=== PATIENT | female | born 1950 | race Caucasian/White ===

== ENCOUNTER 2020-07-22 15:59 | Emergency (ER) | payer OTHER ==
[~2020-07-22] VITALS: Ht 157 cm; Wt 74.8 kg
[~2020-07-22 15:59] MED LIST: HYDROCODONE; MELO-195; PRIMATINE MIST; PROP1TAB77
[2020-07-22] MEDS ORDERED: LIDOCAINE 1% INJ 20 ML 20 ML VIAL INJ ONE (16:30)
[2020-07-22] MEDS ORDERED: BUPIVACAINE 0.5% 30 ML (SENSORCAINE) VIAL INJ ONE (16:45)
--- NOTE | 2020-07-22 18:13 | ED Lower Extremity ---
General Chief Complaint: Lower Extremity Stated Complaint: PAIN IN LEFT KNEE Nursing Triage Note: PT PRESENTS TO ED FOR LT KNEE SWELLING AND PAIN. PT DENIES KNOWN INJURY. PT STATES THIS HAPPENED ABOUT TWO MONTHS AGO AND FLUID WAS DRAINED BY DR. ABDI. PT AMB. TO [facility]. Nursing Sepsis Screen: No Definite Risk Source: patient Exam Limitations: no limitations History of Present Illness Date Seen by Provider: Jul 22, 2020 Time Seen by Provider: 16:20 Initial Comments This 70-year-old woman presents to the emergency room with progressive left knee effusion and pain. She has history of this problem in the past and had aspiration and injection performed at [facility] last year. This treatment was helpful. She has an appointment pending with Dr. Abdi later this week but states she cannot wait until then because her pain is too severe. I did contact [facility] for review of prior records. Aspirate was sent for andi hickeyation at that time and grew no bacteria. There were crystals. Therapy at that time included aspiration of fluid and injection of dexamethasone, Marcaine, and lidocaine. Patient would like to repeat this therapy today. Allergies and Home Medications Allergies Coded Allergies: Heparin Agents (Verified Allergy, Unknown, HEMATOMAS , 10/14/08) Ibuprofen (Verified Allergy, Unknown, 08/25/05) Patient Home Medication List Home Medication List Reviewed: Yes Review of Systems Constitutional: no symptoms reported EENTM: no symptoms reported Respiratory: no symptoms reported Cardiovascular: no symptoms reported Gastrointestinal: no symptoms reported Genitourinary: no symptoms reported : No Musculoskeletal: see HPI Skin: no symptoms reported Psychiatric/Neurological: No Symptoms Reported Past Xlrqnhl-Zxegvb-Oaetgz Hx Past Med/Social Hx: Reviewed Nursing Past Med/Soc Hx Patient Social History Alcohol Use: Denies Use Smoking Status: Current Everyday Smoker Recent Infectious Disease Expo: No Recent Hopitalizations: Yes (back surgery, gi bleed from heparin infusing, bronchitis) Past Medical History Surgeries: Yes Gallbladder, Orthopedic Respiratory: Yes Asthma, Pneumonia, Chronic Bronchitis Cardiac: No Neurological: No : No Reproductive Disorders: No Sexually Transmitted Disease: No Gastrointestinal: Yes Gastrointestinal Bleed Musculoskeletal: Yes Arthritis Endocrine: No Psychosocial: No Blood Disorders: No Physical Exam Vital Signs Vital Signs - First Documented 07/22/20 16:15 Temp 35.5 Pulse 107 Resp 19 B/P (MAP) 156/88 (110) Pulse Ox 100 O2 Delivery Room Air Capillary Refill : Less Than 3 Seconds Height, Weight, BMI Height: '" Weight: lbs. oz. kg; 30.00 BMI Method:Stated General Appearance: WD/WN, no apparent distress HEENT: normal ENT inspection Respiratory: no respiratory distress Knees: bilateral knee joint effusion, bilateral knee other (Left knee has significant tight effusion with no erythema, heat, or inflammatory changes. There is tenderness to palpation.) Neurologic/Psychiatric: no motor/sensory deficits, alert, normal mood/affect, oriented x 3 Skin: normal color, warm/dry Procedures/Interventions After informed consent aspiration and injection of the left knee was performed. A superior lateral approach was used. Skin was anesthetized with superficial injection of lidocaine. Skin was then prepped with Betadine and an 18-gauge needle was inserted into the joint space. Approximately 60 mL of yellow synovial fluid was aspirated with scant amount of blood. A mixture of 0.5% Marcaine (2 mL), 1% lidocaine (2 mL), and dexamethasone 4 mg was injected via the same needle. Patient tolerated the procedure well and had immediate improvement in symptoms. Progress/Results/Core Measures Results/Orders My Orders Orders - RONAK RODRIGUEZ MD Lidocaine 1% Inj 20 Ml (Xylocaine 1% Inj (07/22/20 16:30) Bupivacaine 0.5% Injection (Sensorcaine (07/22/20 16:45) Dexamethasone Injection (Decadron Inje (07/22/20 16:45) Medications Given in ED Current Medications Medications Dose Ordered Sig/Julissa Route Start Time Stop Time Status Last Admin Dose Admin Bupivacaine HCl 30 ml ONCE ONCE INJ 07/22/20 16:45 07/22/20 16:46 DC 07/22/20 18:33 2 ML Dexamethasone Sodium Phosphate 4 mg ONCE ONCE INJ 07/22/20 16:45 07/22/20 16:46 DC 07/22/20 18:33 4 MG Lidocaine HCl 20 ml ONCE ONCE INJ 07/22/20 16:30 07/22/20 16:31 DC 07/22/20 18:31 3 ML Vital Signs/I&O 07/22/20 07/22/20 16:15 18:32 Temp 35.5 35.5 Pulse 107 90 Resp 19 18 B/P (MAP) 156/88 (110) 137/82 Pulse Ox 100 100 O2 Delivery Room Air Room Air Blood Pressure Mean: 110 Departure Impression Primary Impression: Effusion, left knee Additional Impression: Left knee pain Qualified Codes: M25.562 - Pain in left knee; G89.29 - Other chronic pain Disposition: 01 HOME, SELF-CARE Condition: Improved Departure-Patient Inst. Decision time for Depature: 18:10 Referrals: [facility] (PCP/Family) Primary Care Physician Patient Instructions: Osteoarthritis Add. Discharge Instructions: Keep your appointment with Dr. Abdi. Please notify his office that the aspiration and injection have already been performed prior to your appointment. Gradually increase level of activity as pain allows. You may have some rebound of pain after the anesthetic medication wears off. Return to care promptly if you have worsening of symptoms, especially if you develop heat, redness, or escalating pain around the knee and injection site or if you develop fever. Call with questions or concerns. All discharge instructions reviewed with patient and/or family. Voiced mitch martinez. Copy Copies To 1: MOJGAN CRUZ JOSHUA T MD Jul 22, 2020 18:13
[2020-07-22 18:32] VITALS: BP 137/82
== END 2020-07-22 18:32 | disposition home or self-care (01) ==
LOC: EDUNIT# 15:59 → ER 16:04
DX: M25.462 Effusion, left knee (principal); J45.909 Unspecified asthma, uncomplicated; F17.200 Nicotine dependence, unspecified, uncomplicated; Z88.5 Allergy status to narcotic agent; Z88.8 Allergy status to other drugs, medicaments and biological substances
CPT/HCPCS: 99284

== ENCOUNTER 2020-08-09 09:36 | Emergency (ER) | payer OTHER ==
[~2020-08-09] VITALS: Ht 165 cm; Wt 74.0 kg
--- NOTE | 2020-08-09 12:12 | ED Lower Extremity ---
General Chief Complaint: Lower Extremity Stated Complaint: L KNEE PAIN Nursing Triage Note: PT CO OF L KNEE PAIN, RATES 9/10. STATES WAS HERE 2 WEEKS AGO AND HAD FLUID ON KNEE Nursing Sepsis Screen: No Definite Risk Source: patient Exam Limitations: no limitations History of Present Illness Date Seen by Provider: Aug 09, 2020 Time Seen by Provider: 12:07 Initial Comments To ER with left knee pain and swelling for a couple of weeks. She has had 2 arthrocentesis done each of which included an injection of dexamethasone into the joint. Most recently about 2 weeks ago. She is to see Dr. Abdi from orthopedics in [facility] but has not yet seen him. No systemic symptoms such as fevers or chills. Onset: just prior to arrival Severity: moderate Pain/Injury Location: left knee Method of Injury: unknown Modifying Factors: Worse With Movement Allergies and Home Medications Allergies Coded Allergies: Heparin Agents (Verified Allergy, Unknown, HEMATOMAS , 10/14/08) Ibuprofen (Verified Allergy, Unknown, 08/25/05) Patient Home Medication List Home Medication List Reviewed: Yes Review of Systems Constitutional: see HPI; No chills, No fever EENTM: see HPI Respiratory: no symptoms reported Cardiovascular: no symptoms reported Genitourinary: no symptoms reported Musculoskeletal: see HPI Skin: no symptoms reported Psychiatric/Neurological: No Symptoms Reported Past Rgcwntj-Gjkglw-Kjmclk Hx Patient Social History Alcohol Use: Denies Use Smoking Status: Current Everyday Smoker Type Used: Cigarettes Recent Infectious Disease Expo: No Recent Hopitalizations: Yes (back surgery, gi bleed from heparin infusing, bronchitis) Past Medical History Surgeries: Yes Gallbladder, Orthopedic Respiratory: Yes Asthma, Pneumonia, Chronic Bronchitis Cardiac: No Neurological: No Reproductive Disorders: No Sexually Transmitted Disease: No Gastrointestinal: Yes Gastrointestinal Bleed Musculoskeletal: Yes Arthritis Endocrine: No Psychosocial: No Blood Disorders: No Physical Exam Vital Signs Vital Signs - First Documented 08/09/20 11:55 Temp 36.1 Pulse 51 Resp 18 B/P (MAP) 132/50 (77) Pulse Ox 100 Capillary Refill : Less Than 3 Seconds Height, Weight, BMI Height: '" Weight: lbs. oz. kg; 27.00 BMI Method:Stated General Appearance: WD/WN, no apparent distress Respiratory: no respiratory distress, no accessory muscle use Hips: bilateral hip non-tender, bilateral hip normal inspection, bilateral hip normal range of motion Legs: bilateral leg non-tender, bilateral leg normal inspection, bilateral leg normal range of motion Knees: left knee soft tissue tenderness, left knee swelling (Left knee is tender to palpation with a palpable effusion. There is no erythema. ) Ankles: bilateral ankle non-tender, bilateral ankle normal inspection, bilateral ankle normal range of motion Feet: bilateral foot non-tender, bilateral foot normal inspection, bilateral foot normal range of motion Neurologic/Psychiatric: alert, normal mood/affect, oriented x 3 Skin: normal color, warm/dry Procedures/Interventions Additional Procedures: Arthrocentesis Aspirating Progress Using sterile technique an area that was 1 cm superior and 1 cm lateral to the superior and lateral border of the left patella was identified. This was cleansed with Betadine swabs which were allowed to dry. It was anesthetized with 1 mL of lidocaine without epinephrine using a 27-gauge needle. A larger 18-gauge needle attached to a 20 mL syringe was then inserted and we were able to aspirate 52 mL of cloudy yellow effluent. Progress/Results/Core Measures Results/Orders Lab Results Laboratory Tests Test 08/09/20 12:20 Range/Units My Orders Orders - EDDA HARRINGTON APRN Body Fluid Cell Count (08/09/20 12:04) Crystals,Body Fluid (08/09/20 12:04) Body Fluid Culture (08/09/20 12:04) Lidocaine 1% Inj 20 Ml (Xylocaine 1% Inj (08/09/20 12:15) Triamcinolone Acetonide Im (Kenalog-40) (08/09/20 12:15) Medications Given in ED Current Medications Medications Dose Ordered Sig/Julissa Route Start Time Stop Time Status Last Admin Dose Admin Lidocaine HCl 20 ml ONCE ONCE INJ 08/09/20 12:15 08/09/20 12:16 DC 08/09/20 12:22 20 ML Vital Signs/I&O 08/09/20 11:55 Temp 36.1 Pulse 51 Resp 18 B/P (MAP) 132/50 (77) Pulse Ox 100 Blood Pressure Mean: 77 Departure Impression Primary Impression: Effusion, left knee Disposition: 01 HOME, SELF-CARE Condition: Stable Departure-Patient Inst. Decision time for Depature: 13:42 Referrals: [facility] (PCP/Family) Primary Care Physician Patient Instructions: Knee Pain Add. Discharge Instructions: 1. Keep your appointment with Dr. Abdi. Return to ER for any concerns. We will call you with the results of your fluid analysis today. All discharge instructions reviewed with patient and/or family. Voiced understanding. EDDA HARRINGTON CUSTOMER CONSULTANT Aug 09, 2020 12:12
[2020-08-09] MEDS ORDERED: LIDOCAINE 1% INJ 20 ML 20 ML VIAL INJ ONE (12:15)
[2020-08-09] MEDS: TRIAMCINOLONE ACET (KENALOG-40) 40 MG/ML 1 ML VIAL IA ONE ×2 (12:17→12:30)
[2020-08-09 13:50] VITALS: BP 131/55
[2020-08-09 14:17] LABS: BODY FLUID COLOR PALE YELLOW; BODY FLUID SOURCE SYNOVIAL
[2020-08-09 14:18] LABS: BODY FLUID APPEARENCE CLOUDY; BODY FLUID WBC TOTAL COUNT 19313 /uL
[2020-08-09 14:32] LABS: BODY FLUID RBC COUNT 917 /uL
[2020-08-09 15:45] LABS: BF OTHER CELLS 0 %; LYMPHOCYTES,BODY FLUID 9 %
== END 2020-08-09 13:50 | disposition home or self-care (01) ==
LOC: EDUNIT# 09:36 → ER 09:37
DX: M25.462 Effusion, left knee (principal); J45.909 Unspecified asthma, uncomplicated; F17.210 Nicotine dependence, cigarettes, uncomplicated
CPT/HCPCS: 20610; 87070; 87205; 89051; 89060

== ENCOUNTER → 2022-01-17 | Outpatient (CLI) | payer MEDICARE, OTHER ==
--- NOTE | 2022-01-17 18:07 | Diagnostic Imaging Report ---
PROCEDURE: MRI lumbar spine. TECHNIQUE: Multiplanar, multisequence MRI of the lumbar spine was performed without contrast. INDICATION: Lower back pain. COMPARISON: None FINDINGS: For the purposes of this exam, last well-formed disc space is denoted the L5-S1 level. Evaluation of the static alignment shows borderline grade 1 grade 2 anterolisthesis at L4-L5. There is no evidence of jumped facets. Vertebral body heights are maintained. There is no acute fracture. Evaluation of the marrow signal demonstrates Modic type change involving the adjacent endplates at L4-L5. There is also multilevel intervertebral disc height loss, also greatest at this level. Visualized portions of distal cord are unremarkable. Conus terminates at approximately the T12-L1 level. No abnormal intrathecal filling defects are seen. Pre and paravertebral soft tissue structures are unremarkable. Axial images demonstrate the following: T12-L1: There is no large disc bulge or focal protrusion. There is bilateral facet arthropathy and ligamentum flavum laxity. There is, however, no significant spinal canal or neuroforaminal stenosis. L1-L2: There is broad-based posterior disc bulge. This results in mild narrowing of the spinal canal. Neural foramen are unremarkable. L2-L3: There is broad-based posterior disc bulge. As a result, there is minimal narrowing of the spinal canal and bilateral neural foramen. L3-L4: There is broad-based posterior disc bulge with bilateral ligamentum flavum laxity and facet arthropathy. As a result, there is mild stenosis of the spinal canal and bilateral neural foramen. L4-L5: There is unroofing of the disc with broad-based posterior disc bulge and bilateral facet arthropathy. As a result, there is moderate stenosis of the spinal canal and left neuroforamen. There is also severe stenosis on the right. L5-S1: There is small left paracentric posterior disc protrusion and bilateral facet arthropathy. As a result, there is minimal narrowing of the spinal canal and bilateral neural foramen. IMPRESSION: 1. Multilevel degenerative changes of the lumbar spine greatest at the L4-L5 level as described above. 2. No acute fracture or dislocation. Dictated by: Dictated on workstation # [id number]
== END ==
LOC: RAD 13:27
PROVIDERS: ATTEND Pediatrics
DX: M47.816 Spondylosis without myelopathy or radiculopathy, lumbar region (principal); M43.16 Spondylolisthesis, lumbar region; M47.815 Spondylosis without myelopathy or radiculopathy, thoracolumbar region; M51.26 Other intervertebral disc displacement, lumbar region; M48.061 Spinal stenosis, lumbar region without neurogenic claudication
CPT/HCPCS: 72148